=== PATIENT | male | born 1990 | race Caucasian/White ===

== ENCOUNTER 2022-05-03 11:37 | Emergency (ER) | payer OTHER, SELFPAY ==
--- NOTE | 2022-05-03 11:48 | ED.ALCOHOL ---
HPI - Alcohol General Chief Complaint: ETOH/Substance Use Stated Complaint: FOUND UNRESPONSIVE IN CAR IN [place] ETOH USE Time Seen by Provider: 05/03/22 11:44 Source: EMS Mode of arrival: EMS Limitations: altered mental status (intoxication) History of Present Illness HPI narrative: found sleeping in his car outside AA meeting with empty vodka bottle complaint: alcohol intoxication Last drink: Just prior to admission Chronic alcohol use: Yes Associated symptoms: denies other symptoms Treatments prior to arrival: none Related Data Allergies Allergy/AdvReac Type Severity Reaction Status Date / Time No Known Allergies Allergy Verified 05/03/22 11:45 Review of Systems Review of Systems: ROS unable to be obtained due to altered mental status PMFSH Past Medical History Medical History (Updated 05/03/22 @ 12:17 by Sheila Kwan DO) Alcoholism Social History Social History (Updated 05/03/22 @ 11:54 by Sheila Kwan DO) Alcohol intake: current Patient Tobacco Use Status: Tobacco use Unknown Physical Exam ED Vital Signs: Vital Signs - 24 hr 05/03/22 11:51 05/03/22 11:56 Temperature 98.0 F Pulse Rate 98 Respiratory Rate 18 Blood Pressure 160/89 H Pulse Oximetry 90 L 96 Oxygen Delivery Method Room Air Nasal Cannula Oxygen Flow Rate 2 BMI result Body Mass Index 26.6 Appearance: Somnolent, difficult to wake with tactile stimuli. No acute distress Eyes: Pupils equal, round and reactive to light. 4mm ENT: Pharynx normal. Atraumatic. Neck: Normal inspection. Neck supple. CVS: Normal heart rate and rhythm. Pulses normal. Respiratory: No respiratory distress. Breath sounds normal. Abdomen: Soft and non-tender. Skin: Skin warm and dry. Normal skin color. Extremities: No lower extremity edema. No calf ttp Neuro: Will not participate in exam. Course Course Course Narrative: Patient placed in physician observation at 1229pm. The indication for observation is that the patient needs more time metabolize alcohol and clinically sober up. At this time the patient is well developed well nourished, lungs clear, CV RRR, abd nontender, patient is somnolent. MDM - Alcohol MDM Narrative Medical decision making narrative: 32 yo male with hx of alcoholism found outside AA meeting with empty bottle of vodka - he has no signs of trauma. POC blood sugar normal at this time. Will obtain basic labs and ETOH level. Will observe until more awake. Lab Data Result diagrams: 05/03/22 12:06 05/03/22 12:06 Labs: Lab Results 05/03/22 05/03/22 Range/Units 12:06 12:06 WBC 5.5 (4.8-10.8) X10*3/uL RBC 5.19 (4.60-5.80) X10*6/uL Hgb 15.4 (14.0-18.0) g/dl Hct 46.3 (42.0-52.0) % MCV 89.2 (80.0-98.0) fL MCH 29.7 (27.0-33.0) pg MCHC 33.3 (31.0-36.0) g/dl RDW 12.6 (11.0-16.0) % Plt Count 239 (160-400) X10*3/uL MPV 9.5 (9.4-12.4) fL Immature Gran % (Auto) 0.5 H (0.0-0.4) % Neut % (Auto) 63.4 (45-73) % Lymph % (Auto) 26.0 (20-40) % [place] % (Auto) 6.5 (2-11) % Eos % (Auto) 2.5 (0-4) % Baso % (Auto) 1.1 (0-2) % Lymph # (Auto) 1.4 (1.2-4.9) X10*3/uL [place] # (Auto) 0.4 (0.1-1.2) X10*3/uL Eos # (Auto) 0.1 (0.0-0.4) X10*3/uL Baso # (Auto) 0.1 (0.0-0.2) X10*3/uL Abs Immat Gran (auto) 0.03 (0.00-0.03) X10*3/uL Absolute Neuts (auto) 3.5 (2.0-8.3) x10*3/uL Absolute Nucleated RBC 0.000 (0.0-0.012) X10*3/uL Nucleated RBC % (auto) 0.0 (0.0-0.2) /100WBC Sodium 141 (135-145) mmol/L Potassium 4.1 (3.3-5.1) mmol/L Chloride 104 (96-108) mmol/L Carbon Dioxide 24 (22-29) mmol/L Anion Gap 17 (12-20) BUN 12 (9-16) mg/dL Creatinine 0.73 (0.5-1.4) mg/dL Estim Creat Clear Calc 145.2 Estimated GFR > 60 Random Glucose 98 (60-115) mg/dL Calcium 8.7 (8.4-10.2) mg/dL Ethyl Alcohol 457 H* mg/dL Discharge Plan Discharge Clinical Impression: Alcoholic intoxication Patient Disposition: Still a Patient
[2022-05-03 11:51] VITALS: BP 155/88; BP 160/89; PULSE 100; PULSE 98; RESP 18; TEMP 36.7; O2SAT 90; O2SAT 95; BMI 26.6
[2022-05-03 11:56] VITALS: O2SAT 96
[2022-05-03 12:10] LABS: MANUAL DIFF FLAG NO
[2022-05-03 12:11] LABS: Basophils Absolute Auto 0.1 X10*3/uL (0.0-0.2); Basophils Percent Auto 1.1 % (0-2); Eosinophils Absolute Auto 0.1 X10*3/uL (0.0-0.4); Eosinophils Percent Auto 2.5 % (0-4); Hematocrit 46.3 % (42.0-52.0); Hemoglobin 15.4 g/dl (14.0-18.0); Imm Gran Abs Auto 0.03 X10*3/uL (0.00-0.03); Imm Gran Pct Auto 0.5 % (0.0-0.4); Lymphocytes Absolute Auto 1.4 X10*3/uL (1.2-4.9); Mean Corpuscular HGB Conc 33.3 g/dl (31.0-36.0); Mean Corpuscular Hemoglobin 29.7 pg (27.0-33.0); Mean Corpuscular Volume 89.2 fL (80.0-98.0); Mean Platelet Volume 9.5 fL (9.4-12.4); Monocytes Absolute Auto 0.4 X10*3/uL (0.1-1.2); Monocytes Percent Auto 6.5 % (2-11); Neutrophils Absolute Auto 3.5 x10*3/uL (2.0-8.3); Neutrophils Percent Auto 63.4 % (45-73); Platelet Count 239 X10*3/uL (160-400); Red Blood Count 5.19 X10*6/uL (4.60-5.80); Red Cell Distribution Width 12.6 % (11.0-16.0); White Blood Count 5.5 X10*3/uL (4.8-10.8)
[2022-05-03 12:27] LABS: Anion Gap 17 (12-20); Blood Urea Nitrogen 12 mg/dL (9-16); Calcium 8.7 mg/dL (8.4-10.2); Carbon Dioxide 24 mmol/L (22-29); Chloride 104 mmol/L (96-108); Creatinine Clr Calc Pharmacy 145.2; Estimated Glomerular Filt Rate > 60; Ethanol 457 mg/dL; Glucose Random 98 mg/dL (60-115); Potassium 4.1 mmol/L (3.3-5.1); Sodium 141 mmol/L (135-145)
[2022-05-03 12:28] LABS: COVID-19 Test Negative (Negative)
--- NOTE | 2022-05-03 18:48 | MHC.CARE ---
CARE team consult received from ED attending physician for 32 year old male who arrived to the ED via ambulance heavily intoxicated after he was found in his car outside of his IOP with an empty bottle of vodka. Pt expressed interest in detox after arriving to the hospital but has been too inebriated to have further discussion about treatment options. Pt's is at bedside and provided some information about the pt's history of use and treatment. She reported that the pt has been to [facility] four times this year (September for detox and CSS, January for detox, February for detox, and March for detox and CSS). She shared that his longest stint of sobriety this year was 42 days, during which time he was attending AA meetings daily. She wasn't able to identify a trigger for his relapses. She reported that he had a history of drinking heavily, primarily beer, but last year he started also drinking hard liquor and his use and dependency increased significantly. He has been missing work and is in the process of applying for PFML, which was started while he was at [facility] two weeks ago. 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 CARE team contacted Giselle Oliverosdanitatyson at [facility] (phone: [phone]) to provide information for insurance verification. CARE team was then contacted by Debra in admissions and facilitated the phone intake with the pt and his (primarily his ). Clinical information has been requested, this web content writer will print and fax clinical to Teresa (phone: [phone]) at [facility] (fax: [phone]).
[2022-05-03 19:16] VITALS: BP 141/74; PULSE 89; RESP 18; O2SAT 95
--- NOTE | 2022-05-03 19:35 | MHC.CARE ---
Pt accepted for admission to [facility]. They will be providing transportation, fern picker time around 8:45PM. ED attending physician and nursing is aware.
[2022-05-03] MEDS: LORazepam 1 MG TABLET 2 MG PO (20:01)
== END 2022-05-04 06:28 | disposition home or self-care (01) ==
PROVIDERS: Emergency Provider Emergency Medicine
DX: F10.129 Alcohol abuse with intoxication, unspecified (principal); Y90.8 Blood alcohol level of 240 mg/100 ml or more; Z71.41 Alcohol abuse counseling and surveillance of alcoholic; Z20.822 Contact with and (suspected) exposure to COVID-19; Z79.899 Other long term (current) drug therapy
CPT/HCPCS: 80048; 82077; 85025; 87635; 99283

== ENCOUNTER → 2022-05-17 10:19 | Outpatient (BNVA) | payer OTHER, SELFPAY | PROVIDERS: PCP Nurse Practitioner; Visit Provider Nurse Practitioner Psychiatric/Mental Health | DX: Z51.81 Encounter for therapeutic drug level monitoring (principal); F10.20 Alcohol dependence, uncomplicated | CPT/HCPCS: 80305 ==

== ENCOUNTER → 2022-06-10 13:14 | Outpatient (BNVA) | payer OTHER, SELFPAY | PROVIDERS: PCP Nurse Practitioner; Visit Provider Nurse Practitioner Psychiatric/Mental Health | DX: Z51.81 Encounter for therapeutic drug level monitoring (principal); F10.20 Alcohol dependence, uncomplicated | CPT/HCPCS: 80305; 96372 ==

== ENCOUNTER → 2022-07-08 12:52 | Outpatient (BNVA) | payer OTHER, SELFPAY | PROVIDERS: PCP Nurse Practitioner; Visit Provider Nurse Practitioner Psychiatric/Mental Health | DX: F10.20 Alcohol dependence, uncomplicated (principal); Z51.81 Encounter for therapeutic drug level monitoring; Z79.899 Other long term (current) drug therapy | CPT/HCPCS: 80305; 96372 ==

== ENCOUNTER → 2022-08-03 13:11 | Outpatient (BNVA) | payer OTHER, SELFPAY | PROVIDERS: PCP Nurse Practitioner; Visit Provider Nurse Practitioner Psychiatric/Mental Health | DX: F10.20 Alcohol dependence, uncomplicated (principal); Z51.81 Encounter for therapeutic drug level monitoring; Z79.899 Other long term (current) drug therapy | CPT/HCPCS: 80305; 96372 ==

== ENCOUNTER → 2022-08-31 13:10 | Outpatient (BNVA) | payer OTHER, SELFPAY | PROVIDERS: PCP Nurse Practitioner; Visit Provider Nurse Practitioner Psychiatric/Mental Health | DX: Z51.81 Encounter for therapeutic drug level monitoring (principal); F10.20 Alcohol dependence, uncomplicated | CPT/HCPCS: 80305; 96372 ==

== ENCOUNTER → 2022-09-28 13:09 | Outpatient (BNVA) | payer OTHER, SELFPAY | PROVIDERS: PCP Nurse Practitioner; Visit Provider Nurse Practitioner Psychiatric/Mental Health | DX: F10.20 Alcohol dependence, uncomplicated (principal); Z51.81 Encounter for therapeutic drug level monitoring; Z79.899 Other long term (current) drug therapy | CPT/HCPCS: 80305; 96372 ==

== ENCOUNTER → 2022-10-26 13:11 | Outpatient (BNVA) | payer OTHER, SELFPAY | PROVIDERS: PCP Nurse Practitioner; Visit Provider Nurse Practitioner Psychiatric/Mental Health | DX: Z51.81 Encounter for therapeutic drug level monitoring (principal); F10.20 Alcohol dependence, uncomplicated | CPT/HCPCS: 80305; 96372 ==

== ENCOUNTER → 2022-11-23 13:14 | Outpatient (BNVA) | payer OTHER, SELFPAY | PROVIDERS: PCP Nurse Practitioner; Visit Provider Nurse Practitioner Psychiatric/Mental Health | DX: Z51.81 Encounter for therapeutic drug level monitoring (principal); F10.20 Alcohol dependence, uncomplicated; Z79.899 Other long term (current) drug therapy | CPT/HCPCS: 80305; 96372 ==

== ENCOUNTER → 2022-12-21 13:34 | Outpatient (BNVA) | payer OTHER, SELFPAY | PROVIDERS: PCP Nurse Practitioner; Visit Provider Nurse Practitioner Psychiatric/Mental Health | DX: F10.20 Alcohol dependence, uncomplicated (principal); Z51.81 Encounter for therapeutic drug level monitoring; Z79.899 Other long term (current) drug therapy | CPT/HCPCS: 96372 ==

== ENCOUNTER → 2023-01-18 13:20 | Outpatient (BNVA) | payer OTHER, SELFPAY | PROVIDERS: PCP Nurse Practitioner; Visit Provider Nurse Practitioner Psychiatric/Mental Health | DX: F10.20 Alcohol dependence, uncomplicated (principal) | CPT/HCPCS: 96372 ==

== ENCOUNTER → 2023-02-15 13:33 | Outpatient (BNVA) | payer OTHER, SELFPAY | PROVIDERS: PCP Nurse Practitioner; Visit Provider Nurse Practitioner Psychiatric/Mental Health | DX: Z51.81 Encounter for therapeutic drug level monitoring (principal); F10.20 Alcohol dependence, uncomplicated; Z79.899 Other long term (current) drug therapy | CPT/HCPCS: 96372 ==

== ENCOUNTER 2023-03-23 14:01 | Outpatient (AMB) | payer OTHER, SELFPAY ==
[2023-03-23 14:20] VITALS: BP 108/80; PULSE 60; O2SAT 96
--- NOTE | 2023-03-23 14:20 | MHC.OFFVIS ---
Intake Vital Signs 03/23/23 14:20 BP 108/80 Blood Pressure Location Lt brachial Pulse 60 Pulse Oximetry (%) 96 Intake Visit Reasons: Carina Inj Allergies No Known Allergies Allergy (Verified 12/21/22 13:45) HPI Carina Inj HPI Details Patient presents for follow-up and Vivitrol injection. Reports that he continues to do well with recovery. Still engage with recovery supports and behavioral health providers. Tolerating injection, no questions or concerns at this time. [facility] Medical History (Updated 03/23/23 @ 17:17 by Lupe Garcia CNP) Alcoholism Social History (Updated 05/03/22 @ 11:54 by Sheila Kwan DO) Alcohol intake: current Patient Tobacco Use Status: Tobacco use Unknown Review of Systems Const Reports as per HPI and Reports no additional complaints Physical Exam Vital Signs: Last Vital Signs Pulse 60 03/23/23 14:20 BP 108/80 03/23/23 14:20 Pulse Ox 96 03/23/23 14:20 Const General: cooperative, healthy appearing, no acute distress and well developed Nutritional Appearance: well nourished Orientation/consciousness: patient oriented x3 Limitations: no limitations Neuro General: patient oriented x3 Psych Appearance: well kempt Mental Status: mental status grossly normal Speech and movement: Normal speech and movement present Affect: normal affect Attitude: cooperative Thought process: Normal thought process present Thought content: Normal thought content present Insight: Good insight present (Psych) Judgement: Good judgement present (Psych) Office Meds Vivitrol ER Performing Provider: Lupe Garcia CNP Administered by: Ashlie Mendoza RN on 03/23/23 15:14 Dose Route Admin Location Lot Number Expiration Date [facility] Design Engineering Manager 380 mg IM RG [id number] 07/11/25 43752-904-94 [employer] Comments: T/W assessed for infection, no pain, no swelling, no redness, no discharge, no fever. Pt remined to monitor for above and call the [facility]. Pt tolerated injection. Assessment & Plan Assessment & Plan (1) Alcohol use disorder, severe, dependence: Code(s): F10.20 - Alcohol dependence, uncomplicated Plan: Tolerated injection Follow-up 4 weeks Orders: Orders AMB Naltrexone Injection Patient Supplied Today F10.20 - Alcohol dependence, uncomplicated Coding Level of Care Code Est Pt Level 3 (02333) Diagnoses Alcohol use disorder, severe, dependence F10.20
== END 2023-03-23 14:51 | disposition home or self-care (01) ==
LOC: HO.HCC 14:01
PROVIDERS: PCP Nurse Practitioner; Visit Provider Nurse Practitioner Psychiatric/Mental Health
DX: F10.20 Alcohol dependence, uncomplicated (principal)
CPT/HCPCS: 99213; J2315

== ENCOUNTER → 2023-03-23 14:01 | Outpatient (BNVA) | payer OTHER, SELFPAY | PROVIDERS: PCP Nurse Practitioner; Visit Provider Nurse Practitioner Psychiatric/Mental Health | DX: F10.20 Alcohol dependence, uncomplicated (principal); Z51.81 Encounter for therapeutic drug level monitoring | CPT/HCPCS: 96372 ==

== ENCOUNTER 2023-04-19 13:33 | Outpatient (AMB) | payer OTHER, SELFPAY ==
--- NOTE | 2023-04-19 13:34 | A.OFFVIS_ITS ---
Intake Vital Signs 04/19/23 13:40 BP 108/72 Blood Pressure Location Lt radial Position Sitting Pulse 74 Pulse Source Pulse Oximeter Pulse Oximetry (%) 97 Oxygen Delivery Method Room Air Intake Visit Reasons: Carina Inj Intake Note: the patient presents for a carina inj Adult Specialist Required: No Allergies No Known Allergies Allergy (Verified 04/19/23 13:41) Do you need a note to return to daycare/school/sports/work: No HPI Carina Inj HPI Details Patient presents for AUD treatment followup and vivitrol injection Continues to do well with recovery and still engaged with recovery and supports reporting some increasing depression, working with provider around this no issues to report related to injection PFSH Medical History (Updated 03/23/23 @ 17:17 by Lupe Garcia CNP) Alcoholism Social History (Updated 05/03/22 @ 11:54 by Sheila Kwan DO) Alcohol intake: current Patient Tobacco Use Status: Tobacco use Unknown Review of Systems Const Reports as per HPI and Reports no additional complaints Physical Exam Vital Signs: Last Vital Signs Pulse 74 04/19/23 13:40 BP 108/72 04/19/23 13:40 Pulse Ox 97 04/19/23 13:40 Oxygen Delivery Method Room Air 04/19/23 13:40 Const General: cooperative, healthy appearing, no acute distress and well developed Nutritional Appearance: well nourished Orientation/consciousness: patient oriented x3 Limitations: no limitations Neuro General: patient oriented x3 Psych Appearance: well kempt Mental Status: mental status grossly normal Speech and movement: Normal speech and movement present Affect: normal affect Attitude: cooperative Thought process: Normal thought process present Thought content: Normal thought content present Insight: Good insight present (Psych) Judgement: Good judgement present (Psych) Office Meds Vivitrol ER Performing Provider: Lupe Garcia CNP Administered by: Ashlie Mendoza RN on 04/19/23 14:28 Dose Route Admin Location Lot Number Expiration Date [employer] Laundry Sorter 380 mg IM LG 2023-1001T 08/10/25 [id number] [employer] Comments: T/W assessed for infection, no pain, no swelling, no redness, no exudate, no fever. Pt reminded to monitor for above and call the [facility]. Pt tolerated injection. Assessment & Plan Assessment & Plan (1) Alcohol use disorder, severe, dependence: Code(s): F10.20 - Alcohol dependence, uncomplicated Plan: * Tolerated injection * Follow-up 4 weeks Orders: Orders AMB Naltrexone Injection Patient Supplied Today F10.20 - Alcohol dependence, uncomplicated Medications: Refilled clonidine HCl 0.2 mg orally; 1 tab 2 to 3 times daily as needed for anxiety. Hold if systolic BP < 90 30 tabs 1RF Coding Level of Care Code Est Pt Level 3 (53813) Diagnoses Alcohol use disorder, severe, dependence F10.20
[2023-04-19 13:40] VITALS: BP 108/72; PULSE 74; O2SAT 97
== END 2023-04-19 14:24 | disposition home or self-care (01) ==
LOC: HO.HCC 13:33
PROVIDERS: PCP Nurse Practitioner; Visit Provider Nurse Practitioner Psychiatric/Mental Health
DX: F10.20 Alcohol dependence, uncomplicated (principal)
CPT/HCPCS: 99213; J2315

== ENCOUNTER → 2023-04-19 13:33 | Outpatient (BNVA) | payer OTHER, SELFPAY | PROVIDERS: PCP Nurse Practitioner; Visit Provider Nurse Practitioner Psychiatric/Mental Health | DX: F10.20 Alcohol dependence, uncomplicated (principal); Z51.81 Encounter for therapeutic drug level monitoring; Z79.899 Other long term (current) drug therapy | CPT/HCPCS: 96372 ==

== ENCOUNTER 2023-05-18 13:11 | Outpatient (AMB) | payer OTHER, SELFPAY ==
--- NOTE | 2023-05-18 13:13 | AM.OFFVISNUR ---
Intake Vital Signs 05/18/23 13:18 BP 124/86 Blood Pressure Location Lt radial Position Sitting Pulse 57 Pulse Source Pulse Oximeter Pulse Oximetry (%) 98 Oxygen Delivery Method Room Air Intake Visit Reasons: Carina Inj Intake Note: the patient presents for a carina inj Dog Food Dough Mixer Required: No Allergies No Known Allergies Allergy (Verified 05/18/23 13:19) Coding
[2023-05-18 13:18] VITALS: BP 124/86; PULSE 57; O2SAT 98
== END 2023-05-18 14:09 | disposition home or self-care (01) ==
LOC: HO.HCC 13:12
PROVIDERS: PCP Nurse Practitioner
DX: F10.20 Alcohol dependence, uncomplicated (principal)
CPT/HCPCS: J2315

== ENCOUNTER → 2023-05-18 13:11 | Outpatient (BNVA) | payer OTHER, SELFPAY | PROVIDERS: PCP Nurse Practitioner | DX: F11.20 Opioid dependence, uncomplicated (principal) | CPT/HCPCS: 96372 ==

== ENCOUNTER 2023-06-15 10:05 | Outpatient (AMB) | payer OTHER, SELFPAY ==
--- NOTE | 2023-06-15 10:08 | AM.OFFVISNUR ---
Intake Intake Visit Reasons: Carina Inj Allergies No Known Allergies Allergy (Verified 05/18/23 13:19) Coding
== END 2023-06-15 11:14 | disposition home or self-care (01) ==
PROVIDERS: PCP Nurse Practitioner
DX: F10.20 Alcohol dependence, uncomplicated (principal)

== ENCOUNTER → 2023-06-15 10:05 | Outpatient (BNVA) | payer OTHER, SELFPAY | PROVIDERS: PCP Nurse Practitioner | DX: F10.20 Alcohol dependence, uncomplicated (principal) | CPT/HCPCS: 96372; J2315 ==

== ENCOUNTER → 2023-07-13 11:11 | Outpatient (BNVA) | payer OTHER, SELFPAY | PROVIDERS: PCP Nurse Practitioner; Visit Provider Nurse Practitioner Psychiatric/Mental Health | DX: F10.20 Alcohol dependence, uncomplicated (principal); Z79.899 Other long term (current) drug therapy | CPT/HCPCS: 96372; J2315 ==

== ENCOUNTER 2023-07-13 11:12 | Outpatient (AMB) | payer OTHER, SELFPAY ==
--- NOTE | 2023-07-13 11:23 | AM.OFFVISNUR ---
Intake Intake Visit Reasons: Carina Inj Allergies No Known Allergies Allergy (Verified 05/18/23 13:19) Coding
[2023-07-13 11:31] VITALS: BP 132/82; PULSE 69; O2SAT 97
--- NOTE | 2023-07-13 11:31 | A.OFFVIS_ITS ---
Intake Vital Signs 07/13/23 11:31 BP 132/82 Blood Pressure Location Rt brachial Position Sitting Pulse 69 Pulse Source Pulse Oximeter Pulse Oximetry (%) 97 Oxygen Delivery Method Room Air Intake Visit Reasons: Carina Inj Allergies No Known Allergies Allergy (Verified 05/18/23 13:19) HPI Carina Inj HPI Details Presents for [facility] treatments and follow up. Celebrating one year of sobriety next month. 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 Has no concerns about his recovery at this time. [facility] Medical History (Updated 03/23/23 @ 17:17 by Lupe Garcia CNP) Alcoholism Social History (Updated 05/03/22 @ 11:54 by Sheila Kwan DO) Alcohol intake: current Patient Tobacco Use Status: Tobacco use Unknown Review of Systems Const Reports as per HPI Physical Exam Vital Signs: Last Vital Signs Pulse 69 07/13/23 11:31 BP 132/82 07/13/23 11:31 Pulse Ox 97 07/13/23 11:31 Oxygen Delivery Method Room Air 07/13/23 11:31 Const General: cooperative and healthy appearing Nutritional Appearance: average body habitus Orientation/consciousness: patient oriented x3 Resp Effort & Inspection: normal respiratory effort Skin General skin exam: no rashes or lesions noted Neuro General: patient oriented x3 Psych Appearance: grossly normal Speech and movement: Normal speech and movement present Affect: normal affect Attitude: cooperative Insight: Good insight present (Psych) Judgement: Good judgement present (Psych) Office Meds Vivitrol 380 mg intramuscular suspension,extended release Performing Provider: Lupe Garcia CNP Performing Location: [facility] Administered by: Karis Santiago RN on 07/13/23 11:52 Dose Route Admin Location Dispensed Lot Number Expiration Date [facility] [place] [employer] Operations Intelligence Officer 380 mg IM RG 380 mg [id number] 10/11/25 [id number] [employer] Comments: Pt here for 4 wk AUD visit, carina injection. Pt reports no med changes, no problems with previous injections. Injection given, pt educated to monitor site for signs/symptoms of infection. Pt verbalized understanding. Assessment & Plan Assessment & Plan (1) Alcohol use disorder, severe, dependence: Code(s): F10.20 - Alcohol dependence, uncomplicated Plan Is tolerating the injection well. Follow up in 4 weeks. plan reviewed with Elton HENDERSON Orders: Orders AMB Naltrexone Injection 07/13/23 F10.20 - Alcohol dependence, uncomplicated Coding Level of Care Code Est Pt Level 3 (57718) Diagnoses Alcohol use disorder, severe, dependence F10.20
--- NOTE | 2023-07-13 12:03 | AM.OFFVISNUR ---
Intake Vital Signs 07/13/23 11:31 BP 132/82 Blood Pressure Location Rt brachial Position Sitting Pulse 69 Pulse Source Pulse Oximeter Pulse Oximetry (%) 97 Oxygen Delivery Method Room Air Intake Visit Reasons: Carina Inj Allergies No Known Allergies Allergy (Verified 05/18/23 13:19) Office Meds Vivitrol 380 mg intramuscular suspension,extended release Performing Provider: Lupe Garcia CNP Performing Location: [facility] Administered by: Karis Santiago RN on 07/13/23 11:52 Dose Route Admin Location Dispensed Lot Number Expiration Date [facility] Signals Collector/Analyst 380 mg IM RG 380 mg 2023-3016T 10/11/25 [id number] [employer] Comments: Pt here for 4 wk AUD visit, carina injection. Pt reports no med changes, no problems with previous injections. Injection given, pt educated to monitor site for signs/symptoms of infection. Pt verbalized understanding. Coding Assessment & Plan Assessment & Plan Orders: Orders AMB Naltrexone Injection Today F10.20 - Alcohol dependence, uncomplicated
== END 2023-07-13 11:47 | disposition home or self-care (01) ==
PROVIDERS: PCP Nurse Practitioner; Visit Provider Nurse Practitioner Psychiatric/Mental Health
DX: F10.20 Alcohol dependence, uncomplicated (principal)
CPT/HCPCS: 99213

== ENCOUNTER 2023-08-10 11:07 | Outpatient (AMB) | payer OTHER, SELFPAY ==
--- NOTE | 2023-08-10 11:34 | A.OFFVIS_ITS ---
Intake Vital Signs 08/10/23 11:37 BP 118/76 Blood Pressure Location Lt brachial Position Sitting Pulse 66 Pulse Source Pulse Oximeter Pulse Oximetry (%) 98 Oxygen Delivery Method Room Air Intake Visit Reasons: Carina Inj Allergies No Known Allergies Allergy (Verified 05/18/23 13:19) HPI Carina Inj HPI Details Pt presents for monthly carina injection Denies any concerns related to recovery, Celebrating one year of sobriety next week. PFSH Medical History (Updated 03/23/23 @ 17:17 by Lupe Garcia CNP) Alcoholism Social History (Updated 05/03/22 @ 11:54 by Sheila Kwan DO) Alcohol intake: current Patient Tobacco Use Status: Tobacco use Unknown Review of Systems Const Reports as per HPI Physical Exam Vital Signs: Last Vital Signs Pulse 66 08/10/23 11:37 BP 118/76 08/10/23 11:37 Pulse Ox 98 08/10/23 11:37 Oxygen Delivery Method Room Air 08/10/23 11:37 Const General: cooperative and healthy appearing Resp Effort & Inspection: normal respiratory effort Psych Appearance: grossly normal Mental Status: mental status grossly normal Affect: normal affect Thought content: Normal thought content present Insight: Good insight present (Psych) Office Meds Vivitrol 380 mg intramuscular suspension,extended release Performing Provider: Khushboo Conde NP Performing Location: [facility] Administered by: Khushboo Conde NP on 08/10/23 11:35 Dose Route Admin Location Dispensed Lot Number Expiration Date [facility] [place] Unix Manager 380 mg IM LG 380 mg 2023-1019T 12/09/25 [id number] [employer] Comments: Pt tolerated injection well, reviewed signs and symptoms of infection. Assessment & Plan Assessment & Plan (1) Alcohol use disorder, severe, dependence: Code(s): F10.20 - Alcohol dependence, uncomplicated Plan: Pt tolerating injection Follow up 4 weeks Call office with any concerns, questions, or need sooner appt Orders: Orders AMB Naltrexone Injection Patient Supplied 08/10/23 F10.20 - Alcohol dependence, uncomplicated Coding Level of Care Code Est Pt Level 3 (03046) Diagnoses Alcohol use disorder, severe, dependence F10.20
[2023-08-10 11:37] VITALS: BP 118/76; PULSE 66; O2SAT 98
== END 2023-08-10 12:58 | disposition home or self-care (01) ==
PROVIDERS: PCP Nurse Practitioner
DX: F10.20 Alcohol dependence, uncomplicated (principal)
CPT/HCPCS: 99213

== ENCOUNTER → 2023-08-10 11:07 | Outpatient (BNVA) | payer OTHER, SELFPAY | PROVIDERS: PCP Nurse Practitioner | DX: F10.20 Alcohol dependence, uncomplicated (principal) | CPT/HCPCS: 96372; J2315 ==

== ENCOUNTER 2023-09-07 11:12 | Outpatient (AMB) | payer OTHER, SELFPAY ==
--- NOTE | 2023-09-07 11:15 | MHC.AM.SUB ---
Intake Vital Signs 09/07/23 11:20 BP 118/74 Blood Pressure Location Lt radial Position Sitting Pulse 70 Pulse Source Pulse Oximeter Pulse Oximetry (%) 97 Oxygen Delivery Method Room Air Intake Visit Reasons: Carina Inj Intake Note: the patient presents for a carina inj Structural Design Engineer Required: No Allergies No Known Allergies Allergy (Verified 09/07/23 11:20) Do you need a note to return to daycare/school/sports/work: No PFSH Medical History (Updated 03/23/23 @ 17:17 by Lupe Garcia CNP) Alcoholism Social History (Updated 05/03/22 @ 11:54 by Sheila Kwan DO) Alcohol intake: current Patient Tobacco Use Status: Tobacco use Unknown Physical Exam Vital Signs: Last Vital Signs Pulse 70 09/07/23 11:20 BP 118/74 09/07/23 11:20 Pulse Ox 97 09/07/23 11:20 Oxygen Delivery Method Room Air 09/07/23 11:20 Office Meds Vivitrol 380 mg intramuscular suspension,extended release Performing Provider: Lupe Garcia CNP Performing Location: [facility] Administered by: Karis Santiago RN on 09/07/23 11:46 Dose Route Admin Location Dispensed Lot Number Expiration Date [facility] [place] Biochemistry Specialist 380 mg IM RG 380 mg 2023-3020T 12/09/25 90138-852-58 [employer] Comments: Patient denies concerns about previous injection and tolerated injection well. Educated on signs and symptoms of infection, encouraged to call [facility] with any questions or concerns, Pt verbalized understanding. Assessment & Plan Assessment & Plan Orders: Orders AMB Naltrexone Injection Patient Supplied Today F10.20 - Alcohol dependence, uncomplicated Coding
[2023-09-07 11:20] VITALS: BP 118/74; PULSE 70; O2SAT 97
--- NOTE | 2023-09-07 11:52 | AM.OFFVISNUR ---
Intake Vital Signs 09/07/23 11:20 BP 118/74 Blood Pressure Location Lt radial Position Sitting Pulse 70 Pulse Source Pulse Oximeter Pulse Oximetry (%) 97 Oxygen Delivery Method Room Air Intake Visit Reasons: Carina Inj Allergies No Known Allergies Allergy (Verified 09/07/23 11:20) Nursing Note Patient here for 4 week AUD follow-up and naltrexone injection. Patient is alert, oriented and doing well in recovery, recently celebrated 1 year of sobriety on August 16. 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 Pt follow up appointment in 4 weeks. Office Meds Vivitrol 380 mg intramuscular suspension,extended release Performing Provider: Lupe Garcia CNP Performing Location: [facility] Administered by: Karis Santiago RN on 09/07/23 11:46 Dose Route Admin Location Dispensed Lot Number Expiration Date [employer] Ethylbenzene Converter Operator 380 mg IM RG 380 mg 2023-3020T 12/09/25 [id number] [employer] Comments: Patient denies concerns about previous injection and tolerated injection well. Educated on signs and symptoms of infection, encouraged to call [facility] with any questions or concerns, Pt verbalized understanding. Coding Assessment & Plan Assessment & Plan Orders: Orders AMB Naltrexone Injection Patient Supplied Today F10.20 - Alcohol dependence, uncomplicated
== END 2023-09-07 11:45 | disposition home or self-care (01) ==
PROVIDERS: PCP Nurse Practitioner
DX: F10.20 Alcohol dependence, uncomplicated (principal)

== ENCOUNTER → 2023-09-07 11:12 | Outpatient (BNVA) | payer OTHER, SELFPAY | PROVIDERS: PCP Nurse Practitioner | DX: F10.20 Alcohol dependence, uncomplicated (principal) | CPT/HCPCS: 96372; J2315 ==

== ENCOUNTER 2023-10-05 11:02 | Outpatient (AMB) | payer OTHER, SELFPAY ==
--- NOTE | 2023-10-05 11:03 | AM.OFFVISNUR ---
Intake Vital Signs 10/05/23 11:08 BP 124/68 Blood Pressure Location Lt radial Position Sitting Pulse 66 Pulse Source Pulse Oximeter Pulse Oximetry (%) 99 Oxygen Delivery Method Room Air Intake Visit Reasons: Carina Inj Intake Note: the patient presents for a carina inj Drag Down Required: No Allergies No Known Allergies Allergy (Verified 10/05/23 11:09) Do you need a note to return to daycare/school/sports/work: No Nursing Note Patient here for naltrexone injection. Patient denies any signs or symptoms of adverse reactions, smiling throughout appt, excited to say hes reached past his year alyssa for sobriety. Pt follow up appointment in 4 weeks. He verbbaly understands to call [facility] with any concerns or complications. Office Meds Vivitrol 380 mg intramuscular suspension,extended release Performing Provider: Lupe Garcia CNP Performing Location: [facility] Administered by: Heidy Lopez RN on 10/05/23 11:12 Dose Route Admin Location Dispensed Lot Number Expiration Date [facility] Parking Lot Spotter 380 mg IM RG 380 mg 2023-1025T 01/08/26 [id number] [employer] Coding Assessment & Plan Assessment & Plan Orders: Orders AMB Naltrexone Injection Patient Supplied 10/05/23 F10.20 - Alcohol dependence, uncomplicated
[2023-10-05 11:08] VITALS: BP 124/68; PULSE 66; O2SAT 99
== END 2023-10-05 11:27 | disposition home or self-care (01) ==
PROVIDERS: PCP Nurse Practitioner
DX: F10.20 Alcohol dependence, uncomplicated (principal)

== ENCOUNTER → 2023-10-05 11:02 | Outpatient (BNVA) | payer OTHER, SELFPAY | PROVIDERS: PCP Nurse Practitioner | DX: F10.20 Alcohol dependence, uncomplicated (principal) | CPT/HCPCS: 96372; J2315 ==

== ENCOUNTER 2023-10-31 11:52 | Outpatient (AMB) | payer OTHER, SELFPAY ==
[2023-10-31 12:00] VITALS: BP 118/82; PULSE 73; O2SAT 97
--- NOTE | 2023-10-31 12:00 | MHC.AM.SUB ---
Intake Vital Signs 10/31/23 12:00 BP 118/82 Blood Pressure Location Lt radial Position Sitting Pulse 73 Pulse Source Pulse Oximeter Pulse Oximetry (%) 97 Oxygen Delivery Method Room Air Intake Visit Reasons: Carina Inj Intake Note: the patient is here for a carina inj Technical Services Consultant Required: No Allergies No Known Allergies Allergy (Verified 10/31/23 12:00) Do you need a note to return to daycare/school/sports/work: No PFSH Medical History (Updated 03/23/23 @ 17:17 by Lupe Garcia CNP) Alcoholism Social History (Updated 05/03/22 @ 11:54 by Sheila Kwan DO) Alcohol intake: current Patient Tobacco Use Status: Tobacco use Unknown Physical Exam Vital Signs: Last Vital Signs Pulse 73 10/31/23 12:00 BP 118/82 10/31/23 12:00 Pulse Ox 97 10/31/23 12:00 Oxygen Delivery Method Room Air 10/31/23 12:00 Coding
--- NOTE | 2023-10-31 12:06 | AM.OFFVISNUR ---
Intake Vital Signs 10/31/23 12:00 BP 118/82 Blood Pressure Location Lt radial Position Sitting Pulse 73 Pulse Source Pulse Oximeter Pulse Oximetry (%) 97 Oxygen Delivery Method Room Air Intake Visit Reasons: Carina Inj Allergies No Known Allergies Allergy (Verified 10/31/23 12:00) Nursing Note Patient here for naltrexone injection. Patient denies any signs or symptoms of adverse reactions, smiling throughout appt. Pt follow up appointment in 4 weeks, will meet with provider for check in. He verbbaly understands to call [facility] with any concerns or complications. Office Meds Vivitrol 380 mg intramuscular suspension,extended release Performing Provider: Khushboo Conde NP Performing Location: [facility] Administered by: Heidy Lpoez RN on 10/31/23 12:08 Dose Route Admin Location Dispensed Lot Number Expiration Date [facility] Client Support Analyst 380 mg IM LG 380 mg 2023-1027T 01/08/26 46602-591-47 [employer] Comments: Pt tolerated injection with no stated or noted side effects. Verbally understands to call [facility] with any questions or concerns. Coding Assessment & Plan Assessment & Plan Orders: Orders AMB Naltrexone Injection Patient Supplied (NC) 10/31/23 F10.20 - Alcohol dependence, uncomplicated
== END 2023-10-31 13:27 | disposition home or self-care (01) ==
PROVIDERS: PCP Nurse Practitioner; Visit Provider Nurse Practitioner Family
DX: F10.20 Alcohol dependence, uncomplicated (principal)

== ENCOUNTER → 2023-10-31 11:52 | Outpatient (BNVA) | payer OTHER, SELFPAY | PROVIDERS: PCP Nurse Practitioner; Visit Provider Nurse Practitioner Family | DX: F10.20 Alcohol dependence, uncomplicated (principal) | CPT/HCPCS: 96372; J2315 ==

== ENCOUNTER 2023-11-28 10:44 | Outpatient (AMB) | payer OTHER, SELFPAY ==
--- NOTE | 2023-11-28 10:50 | AM.OFFVISNUR ---
Intake Vital Signs 11/28/23 10:55 BP 122/84 Blood Pressure Location Lt radial Position Sitting Pulse 74 Pulse Source Pulse Oximeter Pulse Oximetry (%) 96 Oxygen Delivery Method Room Air Intake Visit Reasons: MAT Visit/ Carina Inj Intake Note: the patient presents for a carina inj Publicity Expert Required: No Allergies No Known Allergies Allergy (Verified 11/28/23 10:56) Do you need a note to return to daycare/school/sports/work: No Coding Assessment & Plan Assessment & Plan Orders: Orders AMB Naltrexone Injection Patient Supplied (NC) Today F10.20 - Alcohol dependence, uncomplicated Medications: New Vivitrol ER (naltrexone microspheres) 380 mg IM ONCE 1 ea 0RF NS F10.20 - Alcohol dependence, uncomplicated
[2023-11-28 10:55] VITALS: BP 122/84; PULSE 74; O2SAT 96
--- NOTE | 2023-11-28 11:00 | A.OFFVISCC_ITS ---
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 Doing well overall [facility] Medical History (Updated 03/23/23 @ 17:17 by Lupe Garcia CNP) Alcoholism Social History (Updated 05/03/22 @ 11:54 by Sheila Kwan DO) Alcohol intake: current Patient Tobacco Use Status: Tobacco use Unknown Review of Systems Const Reports as per HPI Physical Exam Vital Signs: Last Vital Signs Pulse 74 11/28/23 10:55 BP 122/84 11/28/23 10:55 Pulse Ox 96 11/28/23 10:55 Oxygen Delivery Method Room Air 11/28/23 10:55 Const General: cooperative, healthy appearing and no acute distress Resp Effort & Inspection: normal respiratory effort Psych Appearance: grossly normal Mental Status: mental status grossly normal Speech and movement: Normal speech and movement present Affect: normal affect Attitude: cooperative Office Meds Vivitrol 380 mg intramuscular suspension,extended release Performing Provider: Khushboo Conde NP Performing Location: [facility] Administered by: Heidy Lopez RN on 11/28/23 13:29 Dose Route Admin Location Dispensed Lot Number Expiration Date [facility] A And P Technician 380 mg IM RG 380 mg 2023-1030T 02/08/26 21713-046-41 [employer] Assessment & Plan Assessment & Plan (1) Alcohol use disorder, severe, dependence: Code(s): F10.20 - Alcohol dependence, uncomplicated Plan: -Discussed with him getting updated labwork for clinic to check LFTs -Tolerating injection -Follow up 4 weeks Orders: Orders AMB Naltrexone Injection Patient Supplied (NC) Today F10.20 - Alcohol dependence, uncomplicated Comprehensive Met. Panel Today F10.20 - Alcohol dependence, uncomplicated Coding Level of Care Code Est Pt Level 3 (51012) Diagnoses Alcohol use disorder, severe, dependence F10.20
== END 2023-11-28 11:19 | disposition home or self-care (01) ==
PROVIDERS: PCP Nurse Practitioner; Visit Provider Nurse Practitioner Family
DX: F10.20 Alcohol dependence, uncomplicated (principal)
CPT/HCPCS: 99213

== ENCOUNTER → 2023-11-28 10:44 | Outpatient (BNVA) | payer OTHER, SELFPAY | PROVIDERS: PCP Nurse Practitioner; Visit Provider Nurse Practitioner Family | DX: F10.20 Alcohol dependence, uncomplicated (principal) | CPT/HCPCS: 96372; J2315 ==

== ENCOUNTER 2023-12-26 10:44 | Outpatient (AMB) | payer OTHER, SELFPAY ==
[2023-12-26 10:52] VITALS: BP 128/88; PULSE 65; O2SAT 97
--- NOTE | 2023-12-26 10:52 | AM.OFFVISNUR ---
Intake Vital Signs 12/26/23 10:52 BP 128/88 Blood Pressure Location Lt brachial Position Sitting Pulse 65 Pulse Source Pulse Oximeter Pulse Oximetry (%) 97 Oxygen Delivery Method Room Air Intake Visit Reasons: Carina Inj Allergies No Known Allergies Allergy (Verified 11/28/23 10:56) Nursing Note Patient in office for injection ALert and oriented x4, denies any complications, or concerns. States recovery is going well. He is excited today for good weather and states he is going to visit his [facility]. Office Meds Vivitrol 380 mg intramuscular suspension,extended release Performing Provider: Khushboo Conde NP Performing Location: [facility] Administered by: Heidy Lopez RN on 12/26/23 11:02 Dose Route Admin Location Dispensed Lot Number Expiration Date [facility] Sourcing Engineer 380 mg IM LG 380 mg 2023-1027T 01/08/26 [id number] [employer] Coding Assessment & Plan Assessment & Plan Orders: Orders AMB Naltrexone Injection Patient Supplied (NC) Today F10.20 - Alcohol dependence, uncomplicated Medications: New Vivitrol ER (naltrexone microspheres) 380 mg IM ONCE 1 ea 0RF NS F10.20 - Alcohol dependence, uncomplicated
== END 2023-12-26 11:10 | disposition home or self-care (01) ==
PROVIDERS: PCP Nurse Practitioner
DX: F10.20 Alcohol dependence, uncomplicated (principal)

== ENCOUNTER → 2023-12-26 10:44 | Outpatient (BNVA) | payer OTHER, SELFPAY | PROVIDERS: PCP Nurse Practitioner | DX: F10.20 Alcohol dependence, uncomplicated (principal) | CPT/HCPCS: 96372; J2315 ==